=== PATIENT | male | born 1950 | race Caucasian/White ===

== ENCOUNTER 2019-10-11 14:38 | Emergency (ER) | payer MEDICARE, SELFPAY ==
--- NOTE | ~2019-10-11 | XR_ITS ---
EXAMINATION: XR shoulder LT min 2V, XR shoulder RT min 2V, XR ribs BI 3V w CXR 2V DATE: 10/11/2019 15:28 INDICATION: Posterior rib, bilateral scapular and shoulder pain post fall TECHNIQUE: 1. PA and lateral views of the chest and 3 views of the left ribs and 3 views of the right ribs were obtained. 2. AP internally and externally rotated, AP oblique externally rotated and transscapular Y views of t he left shoulder were obtained. 3. AP internally and externally rotated, AP oblique externally rotated and transscapular Y views of t he right shoulder were obtained. COMPARISON: None FINDINGS: Left shoulder: Normal alignment. Subtle linear lucency along the lateral side of the left scapular body suspicious f or nondisplaced fracture. Acromioclavicular and minimal glenohumeral osteoarthritis. Right shoulder: Comminuted fractures of the right scapular body. There is mild displacement along the fracture plane located along the inferior margin of the scapular spine. 60 degree apex posterior angulation of a fra cture line near the caudal tip of the scapula. No evident involvement of the scapula above the scapul ar spine, the glenoid, acromion or coracoid process. Moderate right acromioclavicular and minimal gle nohumeral osteoarthritis. Cystic change along the greater tuberosity which can be seen with chronic r otator cuff disease. Chest and ribs: There are old healed posterior right 10th and 11th rib fractures. No evident acute rib fractures. Brandin gs are clear with no focal airspace opacities, pulmonary edema, pleural effusion or pneumothorax. Car diomediastinal silhouette is normal. Minimal chronic anterior wedging of a couple mid thoracic verteb ral bodies. IMPRESSION: Comminuted fracture of the right scapular body and possible nondisplaced fracture at the left scapula r body. 2. No acute rib fractures or acute cardiopulmonary disease. Reviewed, dictated and finalized at location A. IMPRESSION: Comminuted fracture of the right scapular body and possible nondisplaced fractu re at the left scapular body. 2. No acute rib fractures or acute cardiopulmonary disease. IMPRESSION: Comminuted fracture of the right scapular body and possible nondisplaced fractu re at the left scapular body. 2. No acute rib fractures or acute cardiopulmonary disease.
--- NOTE | ~2019-10-11 | CT_ITS ---
EXAMINATION: CT thoracic spine wo con EXAM DATE: 10/11/2019 15:36 INDICATION: Fall, back pain. TECHNIQUE: Spiral CT thoracic spine wo con was performed thoracic spine Axial, coronal and sagittal images were reviewed. The dose-length product (DLP) for this examination was 1204.45 mGy-cm. The ex posure was tailored according to patient size (auto mA exposure control), and iterative reconstructio n (ASIR) was used as additional dose reduction technique. There is no prior study for comparison. FINDINGS: There is acute burst fracture of the T4 vertebral body with only 3 mm retropulsion. This co uld be acute. There is mild thoracic disc disease and up to moderate arthropathy causing multilevel n eural foraminal stenosis. The central canal appears widely patent. The vertebral bodies are aligned i n the AP dimension. IMPRESSION: T4 burst fracture with moderate loss of height, could be an acute finding. Only 3 mm retr opulsion. Reviewed, dictated and finalized at location B. IMPRESSION: T4 burst fracture with moderate loss of height, could be an acute f inding. Only 3 mm retropulsion.
[2019-10-11 14:42] VITALS: BP 161/83; PULSE 58; RESP 16; TEMP 36.2; O2SAT 100
--- NOTE | 2019-10-11 15:14 | ED.FALL ---
HPI - Fall General Chief Complaint: Fall Stated Complaint: engine dispatcher incident Time Seen by Provider: 10/11/19 14:46 Source: patient Mode of arrival: ambulatory Limitations: no limitations History of Present Illness HPI Narrative: This is a 68 year old male that presents to the ER for a fall today. 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 Reports he fell onto the concrete on the street. Reports since he has had mid back pain. Also reports shoulder pain. Denies hitting his head, loss of consciousness, vision changes, vomiting, numbness, or weakness. Related Data Home Medications Medication Instructions Recorded Confirmed aspirin 325 mg PO DAILY 10/11/19 10/11/19 fenofibrate 115 mg PO DAILY 10/11/19 10/11/19 fluoxetine 10 mg PO DAILY 10/11/19 10/11/19 lisinopril [Prinivil] 10 mg PO DAILY 10/11/19 10/11/19 Allergies Allergy/AdvReac Type Severity Reaction Status Date / Time No Known Allergies Allergy Unverified 10/11/19 14:57 Review of Systems Review of Systems: Narrative: CONSTITUTIONAL: Denies fever EYES: Denies visual changes GASTROINTESTINAL: Denies vomiting MUSCULOSKELETAL: Reports back pain, joint pain, and myalgia. NEUROLOGIC: Denies numbness, or weakness. All systems reviewed & are unremarkable except as noted in HPI and below PMFSH Past Medical History Medical History (Updated 10/11/19 @ 16:52 by Judy Dennison PA-C) History of depression History of hypertension Social History Social History Gender identity (if verbalized by the patient): Male Exam Narrative: Exam Narrative: GENERAL: Well-appearing, well-nourished, and in no acute distress. HEAD: Normocephalic, atraumatic. EYES: PERRLA and EOMI. ENT: Nares clear, no rhinorrhea or epistaxis. Mucous membranes moist. Oropharynx without tonsillar hypertrophy exudate or other lesions. Bilateral TMs pearly avilez non-bulging NECK: Supple. No adenopathy or masses. No midline cervical spine tenderness. Normal range of motion CHEST: Clear to auscultation. No respiratory distress. No wheezes rales or rhonchi HEART: Regular rate and rhythm. No murmur heard. BACK: Tender to palpation of midline thoracic spine. No midline lumbar spine tenderness EXTREMITIES: Normal range of motion. No edema. Strength equal in bilateral upper extremities (5/5). Normal sensation. Normal peripheral pulses SKIN: Warm, dry, no rash. NEURO: No focal deficits. Alert and oriented x3. Cranial nerves II through XII grossly intact PSYCH: Normal mood and affect Course Consultations Consultation #1: Spoke with [facility] Dr. Melgar who accepts patient for transfer Date: 10/11/19 Time: 16:49 Vital Signs Vital signs: Vital Signs Temperature 97.2 F L 10/11/19 14:42 Pulse Rate 58 L 10/11/19 14:42 Respiratory Rate 16 10/11/19 14:42 Blood Pressure 161/83 H 10/11/19 14:42 Pulse Oximetry 100 10/11/19 14:42 Temperature 98.0 F 10/11/19 17:10 Pulse Rate 66 10/11/19 17:10 Respiratory Rate 18 10/11/19 17:10 Blood Pressure 142/80 H 10/11/19 17:10 Pulse Oximetry 100 10/11/19 17:10 MDM - Fall MDM Narrative Medical decision making narrative: Patient presents to the emergency department for back pain and shoulder pain after a fall off a lawnmower today. Patient denies hitting his head or loss of consciousness. He is neurologically intact. No midline cervical or lumbar spine tenderness. CT scan of the thoracic spine shows a T4 burst fracture with moderate loss of height with 3 mm of retropulsion. Rib/chest x-ray shows a comminuted fracture of the right scapular body and nondisplaced fracture of the left scapular body. Patient will be transferred for further evaluation and treatment at a trauma center. Spoke with [facility] Dr. Melgar who accepts patient for transfer Imaging Data Radiologist's impression: ITS Impressions Ribs w/Chest X-Ray 10/11/19 15:30 IMPRESSION: Comminuted fracture of the right scapular body and
[2019-10-11 17:10] VITALS: BP 142/80; PULSE 66; RESP 18; TEMP 36.7; O2SAT 100
[2019-10-11 18:48] VITALS: BP 138/80; PULSE 66; RESP 18; TEMP 36.7; O2SAT 99
[2019-10-11] MEDS: ONDANSETRON INJ 4 MG/2 ML VIAL IV PUSH (19:00)
[2019-10-11] MEDS: MORPHINE SULFATE 4 MG/ML INJ IV PUSH (19:00)
== END 2019-10-11 19:05 | disposition short-term general hospital (02) ==
PROVIDERS: Emergency Provider Emergency Medicine; PCP Family Medicine
DX: S22.041A Stable burst fracture of fourth thoracic vertebra, initial encounter for closed fracture (principal); S42.111A Displaced fracture of body of scapula, right shoulder, initial encounter for closed fracture; S42.115A Nondisplaced fracture of body of scapula, left shoulder, initial encounter for closed fracture; F32.9 Major depressive disorder, single episode, unspecified; I10 Essential (primary) hypertension; W28.XXXA Contact with powered lawn mower, initial encounter
CPT/HCPCS: 71046; 71110; 72128; 73030; 96374; 96375; 99285; A9270; J2270; J2405

== ENCOUNTER → 2022-10-22 11:13 | Outpatient (CLI) | payer MEDICARE, SELFPAY ==
--- NOTE | ~2022-10-22 | XR_ITS ---
Lumbosacral Spine: AP and lateral views Clinical History: Pain Findings: The normal lordotic curve is maintained. There is probable mild loss of height of all lumba r vertebral bodies, similar appearance to prior exam. There is advanced facet arthropathy from L3 thr ough S1. Intervertebral disc spaces are relatively well-preserved. The sacroiliac joints are normally outlined. Impression: Mild chronic loss of height of all lumbar vertebral bodies, similar to prior exam. Advanced facet joint degenerative changes, as above. Reviewed, dictated and finalized at location [facility]. Impression: Mild chronic loss of height of all lumbar vertebral bodies, similar to prior ex am. Advanced facet joint degenerative changes, as above.
== END ==
PROVIDERS: PCP Nurse Practitioner Family; Visit Provider Nurse Practitioner Family
DX: M54.50 Low back pain, unspecified (principal); M54.16 Radiculopathy, lumbar region
CPT/HCPCS: 72100

== ENCOUNTER 2022-10-24 14:23 | Emergency (ER) | payer MEDICARE, SELFPAY ==
--- NOTE | ~2022-10-24 | XR_ITS ---
Thoracic spine: Clinical Indication: Back pain AP and lateral views were performed. There are multiple mild compression fractures of the lower thoracic spine, probably involving T8, T9, T10, and T11. The intervertebral disc spaces appear normal. Paravertebral soft tissues appear normal . Impression: Multiple mild compression fractures of lower thoracic spine, as detailed above. Reviewed, dictated and finalized at [facility]. Impression: Multiple mild compression fractures of lower thoracic spine, as detailed above.
[2022-10-24 14:33] VITALS: BP 137/66; PULSE 65; RESP 16; TEMP 36.4; O2SAT 98
--- NOTE | 2022-10-24 17:46 | ED.BACK ---
HPI - Back Pain/Injury General Chief Complaint: Back Pain/Injury Stated Complaint: back spasms Time Seen by Provider: 10/24/22 16:45 History of Present Illness HPI Narrative: Patient is a 71-year-old man who presents ER with mid thoracic back pain. Reports earlier this week he had been doing work in his garage staining some wood. He been doing a lot of bending. Reports he had gradual increase in pain in his mid thoracic area and radiates around his ribs. Has pain with sneezing and coughing and twisting. He has been taking Medrol Dosepak and Flexeril without improvement. He had a lumbar x-ray that he reports was unremarkable just couple days ago. No lower extremity numbness or weakness. No difficulty with urination or defecation. No additional concerns. Related Data Home Medications Medication Instructions Recorded Confirmed aspirin 325 mg tablet 325 mg PO DAILY 10/11/19 10/11/19 fenofibrate 120 mg tablet 115 mg PO DAILY 10/11/19 10/11/19 fluoxetine 10 mg capsule 10 mg PO DAILY 10/11/19 10/11/19 lisinopril 20 mg tablet (Prinivil) 10 mg PO DAILY 10/11/19 10/11/19 Allergies Allergy/AdvReac Type Severity Reaction Status Date / Time No Known Allergies Allergy Unverified 10/11/19 14:57 Review of Systems Constitutional: Constitutional: Denies chills and Denies fever(s) Genitourinary: Genitourinary: Denies oliguria Musculoskeletal: Musculoskeletal: Reports back pain, Denies arthralgias, Denies joint swelling and Reports muscle cramps Integumentary/Breasts: Skin/Breast: Denies erythema and Denies rash Neurologic: Denies headache(s), Denies focal weakness and Denies numbness PMFSH Past Medical History Medical History (Updated 10/24/22 @ 17:54 by Burton Combs MD) History of depression History of hypertension Social History Social History Gender identity (if verbalized by the patient): Male Exam Narrative: GENERAL: Well-appearing, well-nourished, and in no acute distress. HEAD: Normocephalic, atraumatic. CHEST: Clear to auscultation. No respiratory distress. HEART: Regular rate and rhythm. Normal peripheral pulses. Back: No reproducible midline or paraspinal muscular tenderness of the T or L-spine the patient reports most of his pain is mid to lower thoracic. EXTREMITIES: Normal range of motion. No edema. SKIN: Warm, dry, no rash. NEURO: Alert and oriented x3. PSYCH: Normal mood and affect. Course Course Emergency Course: Patient informed of imaging results of the T-spine. Discussed with radiology and they feel these fractures mostly represent chronic issues though there might be slight change at T7/T8. Patient without neurologic symptoms. Discussed avoiding heavy lifting and strenuous activity. Recommend follow-up with PCP. Barn[place] to be taken as needed for pain and not to be taken with his Flexeril and patient verbalized understanding. Vital Signs Vital signs: Vital Signs Temperature 97.6 F 10/24/22 14:33 Pulse Rate 65 10/24/22 14:33 Respiratory Rate 16 10/24/22 14:33 Blood Pressure 137/66 10/24/22 14:33 Pulse Oximetry 98 10/24/22 14:33 Oxygen Delivery Room Air 10/24/22 14:33 Temperature 97.6 F 10/24/22 14:33 Pulse Rate 65 10/24/22 14:33 Respiratory Rate 16 10/24/22 14:33 Blood Pressure 137/66 10/24/22 14:33 Pulse Oximetry 98 10/24/22 14:33 Oxygen Delivery Room Air 10/24/22 14:33 Discharge Plan Discharge Clinical Impression: Compression fracture of thoracic vertebra Patient Disposition: Home, Self-Care Condition: Stable Instructions: Vertebral Compression Fracture (ED) Additional Instructions: Return to the ER if you have increased pain in your back, you develop lower extremity weakness/numbness/paralysis, you have numbness or tingling in your private parts, or you are unable to control your ability to urinate/stool. Prescriptions: New hydrocodone-acetaminophen 5-325 mg tablet 1 tablet PO Q6H PRN (Reason: pa
[2022-10-24] MEDS: HYDROcodone/acetaminophen (*CRX) 5-325 MG TABLET 1 TAB PO (18:08)
[2022-10-24 18:09] VITALS: BP 130/64; PULSE 65; RESP 16; O2SAT 98
== END 2022-10-24 18:10 | disposition home or self-care (01) ==
PROVIDERS: Emergency Provider Emergency Medicine; PCP Nurse Practitioner Family
DX: M48.54XA Collapsed vertebra, not elsewhere classified, thoracic region, initial encounter for fracture (principal); I10 Essential (primary) hypertension; F32.A Depression, unspecified
CPT/HCPCS: 72072; 99283; A9270

== ENCOUNTER → 2022-11-16 08:30 | Outpatient (CLI) | payer MEDICARE, SELFPAY ==
--- NOTE | ~2022-11-16 | MR_ITS ---
EXAMINATION: MR lumbar spine wo con DATE: 11/16/2022 09:05 INDICATION: Several months of lumbar pain with radiculopathy TECHNIQUE: Magnetic resonance imaging (MRI) of the lumbar spine was performed without intravenous con trast. Sequences included sagittal T2-weighted FSE, sagittal T2-weighted FS FSE, sagittal T1-weighted FSE, and axial T2-weighted FSE. COMPARISON: Radiographs dated 10/22/2022, CT dated 07/20/2014 and MRI dated 08/25/2010 FINDINGS: 1-2 mm retrolisthesis L5 on S1. There is anterior and posterior fusion of L4-L5 which appears to occu rred between studies dated 07/20/2014 and 08/25/2010 with complete loss of the prior L4-L5 disc space an d significant loss of height of the fused L4 and L5 vertebral bodies. This is likely sequela of disci tis/osteomyelitis evident on the study from 2010. Remaining vertebral body heights are normal. Focal increased fluid signal along the posterior inferior endplate of a combined L4-L5 vertebral bodies. Ma rrow signal is otherwise normal. Severe disc height loss at L5-S1. Disc desiccation and mild disc hei ght loss at T10-T11, T11-T12 and L3-L4. The conus medullaris terminates at T12-L1. There is normal si gnal in the caudal spinal cord. There is increased epidural fat at the lower lumbar spine. Partially visualized at least 2.5 cm left renal cyst.. Vertebral soft tissues are otherwise unremarkable. The f ollowing disc levels are specifically discussed: T11-T12: Disc is mildly bulging. There is mild bilateral facet osteoarthritis. There is mild bilatera l neural from stenosis. There is minimal central canal stenosis. T12-L1: The disc does not extend beyond the endplate margin. There is mild right and moderate left fa cet joint osteoarthritis. There is no neural foraminal stenosis. There is no central canal stenosis. L1-L2: Disc is minimally bulging. There is mild bilateral facet joint osteoarthritis. There is mild b ilateral neural foraminal stenosis. There is no central canal stenosis. L2-L3: Disc is mildly bulging. There is severe bilateral facet joint osteoarthritis. There is mild bi lateral neural foraminal stenosis. There is mild central canal stenosis. L3-L4: Disc is mildly bulging with annular fissure. There is hypertrophy of the ligamentum flavum. T here is severe left and moderate to severe right facet joint osteoarthritis. There is moderate right and mild to moderate left neural foraminal stenosis. There is mild to moderate central canal stenosis . L4-L5: Disc space in bilateral facet joints are fused. There is moderate left and moderate to severe right neural foraminal stenosis. There is moderate central canal stenosis. L5-S1: The disc does not extend beyond the more posterior inferior endplate margin of L5. There is in creased epidural fat. There is moderate bilateral facet joint osteoarthritis. There is moderate bilat eral neural foraminal stenosis. There appears to be more severe extra foraminal stenosis between the L5 pedicles and small bilateral posterolateral L5 inferior endplate osteophytes. There is moderate ce ntral canal stenosis. IMPRESSION: 1. Severe lumbosacral spondylosis with mild spondylosis more cephalad lumbar and lower thoracic spine . 2. Chronic anterior and posterior spinal fusion at L4-L5 with height loss of the combined L4 and L5 v ertebral bodies likely sequela of chronic discitis and osteomyelitis. Reviewed, dictated and finalized at location A. IMPRESSION: 1. Severe lumbosacral spondylosis with mild spondylosis more cephalad lumbar an d lower thoracic spine. 2. Chronic anterior and posterior spinal fusion at L4-L5 with height loss of th e combined L4 and L5 vertebral bodies likely sequela of chronic discitis and os teomyelitis.
== END ==
PROVIDERS: PCP Nurse Practitioner Family; Visit Provider Nurse Practitioner Family
DX: M54.16 Radiculopathy, lumbar region (principal); M47.897 Other spondylosis, lumbosacral region; M43.06 Spondylolysis, lumbar region; M43.04 Spondylolysis, thoracic region; M43.26 Fusion of spine, lumbar region
CPT/HCPCS: 72148